=== PATIENT | female | born 1970 | race Caucasian/White ===

== ENCOUNTER 2022-10-23 16:55 | Outpatient (REF) | payer MEDICAID, SELFPAY | END 2022-10-23 16:56 | disposition home or self-care (01) | LOC: HO.HOSX 16:55 | PROVIDERS: Visit Provider Physician Assistant | DX: Z13.89 Encounter for screening for other disorder (principal) ==

== ENCOUNTER 2022-11-14 10:14 | Outpatient (REF) | payer MEDICAID, SELFPAY ==
--- NOTE | ~2022-11-14 | XR_ITS ---
EXAMINATION: XR HIP, LEFT, WITH AP PELVIS XR HIP, RIGHT CLINICAL INFORMATION: Pain. COMPARISON: None available. TECHNIQUE: AP and frog-leg lateral views of the left hip are submitted, together with a frontal view of the pelvis. AP and frog-leg lateral views of the right hip. FINDINGS: There is bony demineralization. The bilateral acetabular joint spaces are well-maintained. There is minimal subchondral sclerosis and peripheral osteophyte formation of the acetabular roofs. The femoral heads are smooth. The sacroiliac joints are symmetric and well-maintained. The pubic symphysis is intact. There is incompletely characterized lumbar levoscoliosis. XR/XR hip RT min 2V IMPRESSION: There is slight osteoarthritic change of the bilateral hips. No fracture or dislocation is seen.
--- NOTE | ~2022-11-14 | XR_ITS ---
EXAMINATION: XR HIP, LEFT, WITH AP PELVIS XR HIP, RIGHT CLINICAL INFORMATION: Pain. COMPARISON: None available. TECHNIQUE: AP and frog-leg lateral views of the left hip are submitted, together with a frontal view of the pelvis. AP and frog-leg lateral views of the right hip. FINDINGS: There is bony demineralization. The bilateral acetabular joint spaces are well-maintained. There is minimal subchondral sclerosis and peripheral osteophyte formation of the acetabular roofs. The femoral heads are smooth. The sacroiliac joints are symmetric and well-maintained. The pubic symphysis is intact. There is incompletely characterized lumbar levoscoliosis. XR/XR hip LT w PEL1V IMPRESSION: There is slight osteoarthritic change of the bilateral hips. No fracture or dislocation is seen.
== END 2022-11-14 10:15 | disposition home or self-care (01) ==
LOC: HO.HOSX 10:14
PROVIDERS: Visit Provider Physician Assistant
DX: M54.16 Radiculopathy, lumbar region (principal)
CPT/HCPCS: 73502; 99202

== ENCOUNTER 2022-11-21 09:32 | Outpatient (REF) | payer MEDICAID, SELFPAY ==
--- NOTE | ~2022-11-21 | XR_ITS ---
EXAMINATION: XR KNEE, RIGHT XR KNEE, LEFT XR KNEE AP STANDING CLINICAL INFORMATION: Pain. COMPARISON: None available. TECHNIQUE: Lateral and axial views of the right knee were obtained. Lateral and axial views of the left knee were obtained. AP bilateral standing view of the knees was obtained. FINDINGS: Right knee: Bony alignment and mineralization are normal. The lateral, medial and patellofemoral joint space compartments are well-maintained. There is mild peripheral osteophyte formation of the lateral joint space compartment. No fracture, dislocation or right knee joint effusion is seen. There is no foreign body. Left knee: Bony alignment and mineralization are normal. There is marked asymmetric narrowing of the medial joint space compartment. The lateral and patellofemoral joint space compartment are well-maintained. There is tricompartment peripheral osteophyte formation. There is a mild varus configuration. No fracture, dislocation or significant joint effusion is seen. There is no foreign body. XR/XR knee LT 2V IMPRESSION: 1. There is mild tricompartment osteoarthritic change of the right knee. 2. There is marked osteoarthritic change of the medial joint space compartment of the left knee comment, and mild osteoarthritic change is seen of the medial joint space compartment. 3. There is a mild varus configuration of the left knee.
--- NOTE | ~2022-11-21 | XR_ITS ---
EXAMINATION: XR KNEE, RIGHT XR KNEE, LEFT XR KNEE AP STANDING CLINICAL INFORMATION: Pain. COMPARISON: None available. TECHNIQUE: Lateral and axial views of the right knee were obtained. Lateral and axial views of the left knee were obtained. AP bilateral standing view of the knees was obtained. FINDINGS: Right knee: Bony alignment and mineralization are normal. The lateral, medial and patellofemoral joint space compartments are well-maintained. There is mild peripheral osteophyte formation of the lateral joint space compartment. No fracture, dislocation or right knee joint effusion is seen. There is no foreign body. Left knee: Bony alignment and mineralization are normal. There is marked asymmetric narrowing of the medial joint space compartment. The lateral and patellofemoral joint space compartment are well-maintained. There is tricompartment peripheral osteophyte formation. There is a mild varus configuration. No fracture, dislocation or significant joint effusion is seen. There is no foreign body. XR/XR knee standing BI IMPRESSION: 1. There is mild tricompartment osteoarthritic change of the right knee. 2. There is marked osteoarthritic change of the medial joint space compartment of the left knee comment, and mild osteoarthritic change is seen of the medial joint space compartment. 3. There is a mild varus configuration of the left knee.
--- NOTE | ~2022-11-21 | XR_ITS ---
EXAMINATION: XR KNEE, RIGHT XR KNEE, LEFT XR KNEE AP STANDING CLINICAL INFORMATION: Pain. COMPARISON: None available. TECHNIQUE: Lateral and axial views of the right knee were obtained. Lateral and axial views of the left knee were obtained. AP bilateral standing view of the knees was obtained. FINDINGS: Right knee: Bony alignment and mineralization are normal. The lateral, medial and patellofemoral joint space compartments are well-maintained. There is mild peripheral osteophyte formation of the lateral joint space compartment. No fracture, dislocation or right knee joint effusion is seen. There is no foreign body. Left knee: Bony alignment and mineralization are normal. There is marked asymmetric narrowing of the medial joint space compartment. The lateral and patellofemoral joint space compartment are well-maintained. There is tricompartment peripheral osteophyte formation. There is a mild varus configuration. No fracture, dislocation or significant joint effusion is seen. There is no foreign body. XR/XR knee RT 2V IMPRESSION: 1. There is mild tricompartment osteoarthritic change of the right knee. 2. There is marked osteoarthritic change of the medial joint space compartment of the left knee comment, and mild osteoarthritic change is seen of the medial joint space compartment. 3. There is a mild varus configuration of the left knee.
== END 2022-11-21 09:33 | disposition home or self-care (01) ==
LOC: HO.HOSX 09:32
PROVIDERS: Visit Provider Physician Assistant
DX: M17.0 Bilateral primary osteoarthritis of knee (principal)
CPT/HCPCS: 73560; 73565; 99212

== ENCOUNTER 2023-02-20 10:50 | Outpatient (AMB) | payer MEDICAID, SELFPAY ==
--- NOTE | 2023-02-20 10:53 | A.OFFVIS_ITS ---
Intake Intake Visit Reasons: OV - left knee euflexxa gel #1 Intake Note: Jenna is a 52 year old female who presents today for her 1st round of left knee euflexxa gel injections. Allergies acetaminophen [From PERCOCET] Allergy (Unknown, Verified 02/20/23 10:59) RASH codeine [CODEINE] Allergy (Unknown, Verified 02/20/23 10:59) RASH morphine [MORPHINE] Allergy (Unknown, Verified 02/20/23 10:59) SWELLING oxycodone [From PERCOCET] Allergy (Unknown, Verified 02/20/23 10:59) RASH penicillamine [Cuprimine] Allergy (Unknown, Verified 02/20/23 10:59) Unknown Penicillins [PENICILLINS] Allergy (Unknown, Verified 02/20/23 10:59) RASH Cortisone Injection Adverse Reaction (Uncoded 11/21/22 13:26) Fatigued HPI OV - left knee euflexxa gel #1 HPI Details 52-year-old female who presents in the office today for a follow up of bilateral knee pain and her 1st Euflexxa injection in a series of 3 in the bilateral knees. [facility] Social History Alcohol intake: current Patient Tobacco Use Status: Former Tobacco user Current occupational status: disabled Review of Systems Const All systems reviewed & are unremarkable except as noted in HPI and below Physical Exam Const General: cooperative and no acute distress Orientation/consciousness: patient oriented x3 Resp Effort & Inspection: normal respiratory effort and able to speak in complete sentences Cardio Peripheral pulses: Peripheral pulses 2+ throughout Neuro General: patient oriented x3 Extrem Other: Bilateral knees: Normal to inspection. No ecchymosis, erythema, or joint effusion. No tenderness to palpation to the medial or lateral joint lines. Full knee extension and flexion. Crepitus felt with ROM. NVI. Psych Mental Status: mental status grossly normal Office Procedures Joint Injection/Drain Joint Injection/Drain Primary Site: left knee Prep: site was prepped using aseptic technique, ethochloride spray was applied and injection warnings given Injected: in the joint (Euflexxa #1) Approach Used: anterolateral Procedure: The patient tolerated the procedure well, but had some pain with the injection and there was some relief with the local anesthesia Coding 03777 - Large joint Procedure code (CPT) selection complete Results Reviewed Results Reviewed: 02/20/23 10:52 Hyaluronate Sodium [Euflexxa] 20 mg INTRAARTIC .[facility] Assessment & Plan Assessment & Plan (1) Osteoarthritis of right knee: Code(s): M17.11 - Unilateral primary osteoarthritis, right knee (2) Osteoarthritis of left knee: Code(s): M17.12 - Unilateral primary osteoarthritis, left knee Plan Ms. Andrade is a 52-year-old female who presents in the office today for a follow up of bilateral knee pain and her 1st Euflexxa injection in a series of 3 in the bilateral knees. The patient was injection with her 1st Euflexxa injection in the bilateral knees. The patient was explained the risk, benefits, and alternatives to receiving this injection. After receiving consent for the injection, the patient had the procedure done while in office today. The patient tolerated the procedure well with no complications. Follow up will be in 1 week for her 2nd Euflexxa injection in the bilateral knees, or sooner if needed. Patient Instructions: Scribed for Joan Hadley PA-C by Debo Kasper medical device engineer, on 02/20/2023 at 10:54 am, EST. Your attestation Coding Level of Care Code Procedure Only Diagnoses Osteoarthritis of right knee M17.11 Osteoarthritis of left knee M17.12 CPT Codes Coding - 79309 Large joint: 58610 - Large joint ([id number])
== END 2023-02-20 11:32 | disposition home or self-care (01) ==
PROVIDERS: Visit Provider Physician Assistant
DX: M17.0 Bilateral primary osteoarthritis of knee (principal)
CPT/HCPCS: 20610

== ENCOUNTER → 2023-02-20 10:50 | Outpatient (BNVA) | payer MEDICAID, SELFPAY | PROVIDERS: Visit Provider Physician Assistant | DX: M17.11 Unilateral primary osteoarthritis, right knee (principal); M17.12 Unilateral primary osteoarthritis, left knee | CPT/HCPCS: 20610; J7323 ==

== ENCOUNTER 2023-03-01 11:41 | Outpatient (AMB) | payer MEDICAID, SELFPAY ==
[2023-03-01 11:50] VITALS: BMI 35.4
--- NOTE | 2023-03-01 11:50 | MHC.OFFVIS ---
Intake Vital Signs 03/01/23 11:50 Height 5 ft 9 in Weight 240 lb BMI 35.4 Intake Visit Reasons: OV-B/L knee Euflexxa injection #2 Intake Note: Jenna is a 52 year old female who presents today for her 2nd round of left knee euflexxa gel injections. Allergies acetaminophen [From PERCOCET] Allergy (Unknown, Verified 03/01/23 11:51) RASH codeine [CODEINE] Allergy (Unknown, Verified 03/01/23 11:51) RASH morphine [MORPHINE] Allergy (Unknown, Verified 03/01/23 11:51) SWELLING oxycodone [From PERCOCET] Allergy (Unknown, Verified 03/01/23 11:51) RASH penicillamine [Cuprimine] Allergy (Unknown, Verified 03/01/23 11:51) Unknown Penicillins [PENICILLINS] Allergy (Unknown, Verified 03/01/23 11:51) RASH Cortisone Injection Adverse Reaction (Uncoded 03/01/23 11:51) Fatigued HPI OV-B/L knee Euflexxa injection #2 HPI Details 53-year-old female who presents in the office today for a follow up of left knee pain and her 2nd Euflexxa injection in a series of 3 in the left knee. [facility] Social History Alcohol intake: current Patient Tobacco Use Status: Former Tobacco user Current occupational status: disabled Review of Systems Const All systems reviewed & are unremarkable except as noted in HPI and below Physical Exam Vital Signs: BMI result Body Mass Index 35.4 Const General: cooperative and no acute distress Orientation/consciousness: patient oriented x3 Resp Effort & Inspection: normal respiratory effort and able to speak in complete sentences Cardio Peripheral pulses: Peripheral pulses 2+ throughout Neuro General: patient oriented x3 Extrem Other: Left knee: Normal to inspection. No ecchymosis, erythema, or joint effusion. No tenderness to palpation to the medial or lateral joint lines. Full knee extension and flexion. Crepitus felt with ROM. NVI. Psych Mental Status: mental status grossly normal Office Procedures Joint Injection/Drain Joint Injection/Drain Primary Site: left knee Prep: site was prepped using aseptic technique, ethochloride spray was applied and injection warnings given Injected: other (Euflexxa #2) Approach Used: anterolateral Procedure: The patient tolerated the procedure well, but had some pain with the injection and there was some relief with the local anesthesia Coding - Large joint Procedure code (CPT) selection complete Results Reviewed Results Reviewed: 03/01/23 11:41 Hyaluronate Sodium [Euflexxa] 20 mg INTRAARTIC .[facility] 03/01/23 12:00 Hyaluronate Sodium [Euflexxa] 20 mg INTRAARTIC .[facility] Assessment & Plan Assessment & Plan (1) Osteoarthritis of left knee: Code(s): M17.12 - Unilateral primary osteoarthritis, left knee Plan Ms. Andrade is a 53-year-old female who presents in the office today for a follow up of left knee pain and her 2nd Euflexxa injection in a series of 3 in the left knee. The patient was injection with her 2nd Euflexxa injection in the left knee. The patient was explained the risk, benefits, and alternatives to receiving this injection. After receiving consent for the injection, the patient had the procedure done while in office today. The patient tolerated the procedure well with no complications. Follow up will be in 1 week for her 3rd Euflexxa injection in the left knee, or sooner if needed. Patient Instructions: Scribed for Joan Hadley PA-C by Debo Kasper medical administrative specialist, on 03/01/2023 at 11:43 am, EST. Your attestation Coding Level of Care Code Procedure Only Diagnoses Osteoarthritis of left knee M17.12 CPT Codes Coding - 06321 Large joint: 18222 - Large joint ([id number])
== END 2023-03-01 12:16 | disposition home or self-care (01) ==
PROVIDERS: Visit Provider Physician Assistant
DX: M17.12 Unilateral primary osteoarthritis, left knee (principal)
CPT/HCPCS: 20610

== ENCOUNTER → 2023-03-01 11:41 | Outpatient (BNVA) | payer MEDICAID, SELFPAY | PROVIDERS: Visit Provider Physician Assistant | DX: M17.12 Unilateral primary osteoarthritis, left knee (principal) | CPT/HCPCS: 20610; J7323 ==

== ENCOUNTER 2023-03-06 12:43 | Outpatient (AMB) | payer MEDICAID, SELFPAY ==
--- NOTE | 2023-03-06 12:50 | MHC.OFFVIS ---
Intake Vital Signs 03/06/23 12:51 Height 5 ft 9 in Weight 240 lb BMI 35.4 Intake Visit Reasons: OV- Left knee Euflexxa injection #3 Intake Note: Jenna is a 52 year old female who presents today for her 3rd round of left knee euflexxa gel injections. Allergies acetaminophen [From PERCOCET] Allergy (Unknown, Verified 03/06/23 12:54) RASH codeine [CODEINE] Allergy (Unknown, Verified 03/06/23 12:54) RASH morphine [MORPHINE] Allergy (Unknown, Verified 03/06/23 12:54) SWELLING oxycodone [From PERCOCET] Allergy (Unknown, Verified 03/06/23 12:54) RASH penicillamine [Cuprimine] Allergy (Unknown, Verified 03/06/23 12:54) Unknown Penicillins [PENICILLINS] Allergy (Unknown, Verified 03/06/23 12:54) RASH Cortisone Injection Adverse Reaction (Uncoded 03/01/23 11:51) Fatigued HPI OV- Left knee Euflexxa injection #3 HPI Details 53-year-old female who presents in the office today for a follow up of left knee pain and her 3rd Euflexxa injection in a series of 3 in the left knee. [facility] Social History Alcohol intake: current Patient Tobacco Use Status: Former Tobacco user Current occupational status: disabled Review of Systems Const All systems reviewed & are unremarkable except as noted in HPI and below Physical Exam Vital Signs: BMI result Body Mass Index 35.4 Const General: cooperative and no acute distress Orientation/consciousness: patient oriented x3 Resp Effort & Inspection: normal respiratory effort and able to speak in complete sentences Cardio Peripheral pulses: Peripheral pulses 2+ throughout Neuro General: patient oriented x3 Extrem Other: Left knee: Normal to inspection. No ecchymosis, erythema, or joint effusion. No tenderness to palpation to the medial or lateral joint lines. Full knee extension and flexion. Crepitus felt with ROM. NVI. Psych Mental Status: mental status grossly normal Office Procedures Joint Injection/Drain Joint Injection/Drain Primary Site: left knee Injected: in the joint (Euflexxa #2) Approach Used: anterolateral Procedure: The patient tolerated the procedure well, but had some pain with the injection and there was some relief with the local anesthesia Coding 91440 - Large joint Procedure code (CPT) selection complete Results Reviewed Results Reviewed: 03/06/23 12:44 Hyaluronate Sodium [Euflexxa] 20 mg INTRAARTIC .[facility] Assessment & Plan Assessment & Plan (1) Osteoarthritis of left knee: Code(s): M17.12 - Unilateral primary osteoarthritis, left knee Plan Ms. Andrade is a 53-year-old female who presents in the office today for a follow up of left knee pain and her 3rd Euflexxa injection in a series of 3 in the left knee. The patient was injection with her 3rd Euflexxa injection in the left knee. The patient was explained the risk, benefits, and alternatives to receiving this injection. After receiving consent for the injection, the patient had the procedure done while in office today. The patient tolerated the procedure well with no complications. Follow up will be PRN, or sooner if needed. Patient Instructions: Scribed for Joan Hadley PA-C by Debo Kasper medical management specialist, on 03/06/2023 at 1:00 pm, EST. Your attestation Coding Level of Care Code Procedure Only Diagnoses Osteoarthritis of left knee M17.12 CPT Codes Coding - 38107 Large joint: 26999 - Large joint ([id number])
[2023-03-06 12:51] VITALS: BMI 35.4
== END 2023-03-06 12:55 | disposition home or self-care (01) ==
PROVIDERS: Visit Provider Physician Assistant
DX: M17.12 Unilateral primary osteoarthritis, left knee (principal)
CPT/HCPCS: 20610

== ENCOUNTER → 2023-03-06 12:43 | Outpatient (BNVA) | payer MEDICAID, SELFPAY | PROVIDERS: Visit Provider Physician Assistant | DX: M17.12 Unilateral primary osteoarthritis, left knee (principal) | CPT/HCPCS: 20610; J7323 ==

== ENCOUNTER 2023-04-03 13:48 | Outpatient (REF) | payer MEDICAID, SELFPAY ==
--- NOTE | ~2023-04-03 | XR_ITS ---
EXAMINATION: XR LUMBOSACRAL SPINE WITH OBLIQUES CLINICAL INFORMATION: Spondylolysis COMPARISON: None available. TECHNIQUE: AP, both oblique, and lateral views of the lumbar spine. Lateral view of the lumbosacral junction. FINDINGS: There is levoscoliosis of lumbar spine and diffuse osteopenia. There is no evidence of spondylolisthesis there is mild spondylolysis of L4 over L5 more pronounced on flexion view and improving on extension view. There is narrowing of L2-L3 and L3-L4 on the right mostly. Pedicles are preserved. Soft tissues are unremarkable. XR/XR lumbar spine 6V w bending IMPRESSION: Levoscoliosis of lumbar spine, spondylolysis of L4 over L5 and narrowing of L2-L3 and L3-L4 on the right.
== END 2023-04-03 13:49 | disposition home or self-care (01) ==
LOC: HO.XRAY 13:48
PROVIDERS: PCP Internal Medicine; Visit Provider Nurse Practitioner Family
DX: M47.816 Spondylosis without myelopathy or radiculopathy, lumbar region (principal); M41.86 Other forms of scoliosis, lumbar region; M79.604 Pain in right leg; M25.551 Pain in right hip
CPT/HCPCS: 72114; 99204

== ENCOUNTER 2023-04-03 13:48 | Outpatient (AMB) | payer MEDICAID, SELFPAY ==
--- NOTE | 2023-04-03 14:25 | MHC.OFFVIS ---
Intake Vital Signs 04/03/23 14:30 Height 5 ft 9 in Weight 233 lb BMI 34.4 BP 115/68 Blood Pressure Location Rt brachial Position Sitting Pulse 57 Pulse Source Pulse Oximeter Pulse Oximetry (%) 95 Oxygen Delivery Method Room Air Intake Visit Reasons: Radiculopathy, Lumbar Region Intake Note: Pain today 3/10 Competitive Intelligence Analyst Required: No Accompanied by: Self / Same As Patient Allergies acetaminophen [From PERCOCET] Allergy (Unknown, Verified 04/03/23 14:34) RASH codeine [CODEINE] Allergy (Unknown, Verified 04/03/23 14:34) RASH morphine [MORPHINE] Allergy (Unknown, Verified 04/03/23 14:34) SWELLING oxycodone [From PERCOCET] Allergy (Unknown, Verified 04/03/23 14:34) RASH penicillamine [Cuprimine] Allergy (Unknown, Verified 04/03/23 14:34) Unknown Penicillins [PENICILLINS] Allergy (Unknown, Verified 04/03/23 14:34) RASH Cortisone Injection Adverse Reaction (Uncoded 03/01/23 11:51) Fatigued HPI Radiculopathy, Lumbar Region HPI Details Patient is a pleasant 53 years old female presents today chronic right hip and lower back pain. Denies any recent or past trauma, injury or falls. Low back pain is axial and also radiates into her right buttock and into her right leg and foot laterally with numbness, tingling in right big toe, 2nd and 3rd toes. Denies previous back or hip surgeries or injections. There is a slight osteoarthritic change of the bilateral hips per most recent imaging. Patient attributes her pain due to arthritis. She also has chronic knee pain and has recently received gel injections through Orthopedic office. Pain increases with walking, any movements, transitioning from sitting to standing, or prolonged sitting. With severe pain, she gets unsteady and imbalance. Patient uses chair in her shower due to unsteadiness. She avoids stairs due to knee, hip and low back pain. Pain is constant is rated at 10/10 most severe with activities and 3-5/10 with rest on average. Reports gabapentin has been minimally effective, willing to trial increased dose. She continues to work on loosing weight and reports 95 lbs weight loss through HEP. Denies any fever, weight loss, abdominal pain, foot drop, weakness, bladder or bowel dysfunction or saddle anesthesia. Location Low back and right hip pain radiates down right leg Duration Chronic low back and right hip pain 5 years Characteristics of symptom or complaint Aching, spasming, shooting, throbbing, sharp, griding, jolting, shooting Aggravating or associated factors Movements, walking, sitting, climbing stairs Relieving factors Rest, Motrin, Tylenol, lidocaine patches, gabapentin -minimal effect Treatment Home exercise program, weight loss PFSH Social History Alcohol intake: current Patient Tobacco Use Status: Former Tobacco user Current occupational status: disabled Review of Systems Const All systems reviewed & are unremarkable except as noted in HPI and below Neuro Denies Sensory deficit (Neuro) Physical Exam Vital Signs: Last Vital Signs Pulse 57 04/03/23 14:30 BP 115/68 04/03/23 14:30 Pulse Ox 95 04/03/23 14:30 Oxygen Delivery Method Room Air 04/03/23 14:30 BMI result Body Mass Index 34.4 General: Appears afebrile. Alert and oriented. Mood and affect appropriate. Follows and participates in conversation appropriately. Respiratory effort is unlabored. No cough. No nasal discharge. Able to transition from sit to stand unassisted. Back/Spine/Pelvis Other: Mildly antalgic gait with limping. Can flex forward to 65-75 degrees and extend to 5-10 degrees before experiencing lumbar pain. Demonstrates 5/5 left and 4/5 right strength of quadriceps bilaterally as well as flexion/dorsiflexion of bilateral feet against resistance. 2+ pedal pulses bilaterally. Seated straight leg rise with dorsiflexion on the right. +1 right and +2 left patellar and +2 achilles reflexes bilaterally. Facet loading test positive bilaterally. Mercedes sign, Reno?s, Gaenslen, Pelvic compression and Stinchfield tests are positive on the right, equivocal on the left. No groin pain with I/E hip rotations. Significant paraspinals and midline tenderness L3-S1. Valsalva maneuver negative. Cervical Spine: cervical ROM normal and No Cervical spine tenderness Thoracic/Lumbar Spine: thoracic and lumbar spine normal to inspection, No Thoracic/lumbar spine scar(s), Lasegue's sign positive on the right and localized, pain with thoraco-lumbar ROM, paraspinal muscle tenderness, thoraco-lumbar ROM limited, Thoracic/lumbar scoliosis, No thoracic spinal tenderness and lumbar spinal tenderness at L3, at L4 and at L5 Pelvis: buttock tenderness on the right and sciatic notch tenderness on the right Sacroiliac joints: bilaterally tender to palpation Neuro Gait exam (Neuro): Antalgic gait present and No Assistive device used Motor exam (neuro): no tremor noted and Motor abnormalities not present Sensory Exam: No Sensory deficit (Neuro) Coordination: Romberg test negative Results Reviewed Results Reviewed: XR LUMBOSACRAL SPINE WITH OBLIQUES 04/03/23 CLINICAL INFORMATION: Spondylolysis COMPARISON: None available. TECHNIQUE: AP, both oblique, and lateral views of the lumbar spine. Lateral view of the lumbosacral junction. FINDINGS: There is levoscoliosis of lumbar spine and diffuse osteopenia. There is no evidence of spondylolisthesis there is mild spondylolysis of L4 over L5 more pronounced on flexion view and improving on extension view. There is narrowing of L2-L3 and L3-L4 on the right mostly. Pedicles are preserved. Soft tissues are unremarkable. IMPRESSION: Levoscoliosis of lumbar spine, spondylolysis of L4 over L5 and narrowing of L2-L3 and L3-L4 on the right. XR HIP, LEFT, WITH AP PELVIS XR HIP, RIGHT 11/14/22 FINDINGS: There is bony demineralization. The bilateral acetabular joint spaces are well-maintained. There is minimal subchondral sclerosis and peripheral osteophyte formation of the acetabular roofs. The femoral heads are smooth. The sacroiliac joints are symmetric and well-maintained. The pubic symphysis is intact. There is incompletely characterized lumbar levoscoliosis. IMPRESSION: There is slight osteoarthritic change of the bilateral hips. No fracture or dislocation is seen. Assessment & Plan Assessment & Plan (1) Lumbar spondylosis: Code(s): M47.816 - Spondylosis without myelopathy or radiculopathy, lumbar region (2) Right hip pain: Code(s): M25.551 - Pain in right hip (3) Low back pain radiating to right lower extremity: Code(s): M54.50 - Low back pain, unspecified; M79.604 - Pain in right leg (4) Levoscoliosis of lumbar spine: Code(s): M41.86 - Other forms of scoliosis, lumbar region Plan 1. Lumbar spine with bending imaging obtained after this visit and is noted above. Will proceed with lumbar spine MRI to assess for neural integrity and compression. Patient is aware to call if pain worsens or if she develops any red flag symptoms to seek emergency care. Patient denies any cauda equina syndrome symptoms at this time. 2. Refill provided for gabapentin with increased dose at 300 mg BID. Side effects and precautions reviewed with patient. 3. Continues HEP and weight loss, as well as good posture, activity modifications, NSAIDs, lidocaine patches, adequate hydration. Briefly reviewed interventional treatments for radicular and axial low back pain with scoliosis, facetogenic, SIJ and discogenic related pain components. Informational booklets provided. All questions and concerns have been answered and patient agreed with the plan. Follow up for MRI results and sooner as needed. Orders: Orders XR lumbar spine 6V w bending 04/03/23 M25.551 - Pain in right hip, M47.816 - Spondylosis without myelopathy or radiculopathy, lumbar region MR lumbar spine wo con 04/03/23 M47.816 - Spondylosis without myelopathy or radiculopathy, lumbar region, M54.50 - Low back pain, unspecified, M79.604 - Pain in right leg Medications: Changed From gabapentin 100 mg PO TID M25.551 - Pain in right hip, M47.816 - Spondylosis without myelopathy or radiculopathy, lumbar region, M54.50 - Low back pain, unspecified, M79.604 - Pain in right leg To gabapentin 300 mg PO BID 30 days 60 caps 1RF pain M25.551 - Pain in right hip, M47.816 - Spondylosis without myelopathy or radiculopathy, lumbar region, M54.50 - Low back pain, unspecified, M79.604 - Pain in right leg Coding Level of Care Code New Pt Level 4 (84060) Diagnoses Lumbar spondylosis M47.816 Right hip pain M25.551 Low back pain radiating to right lower extremity M54.50; M79.604 Levoscoliosis of lumbar spine M41.86
[2023-04-03 14:30] VITALS: BP 115/68; PULSE 57; O2SAT 95; BMI 34.4
== END 2023-04-03 15:00 | disposition home or self-care (01) ==
PROVIDERS: PCP Internal Medicine; Visit Provider Nurse Practitioner Family
DX: M47.816 Spondylosis without myelopathy or radiculopathy, lumbar region (principal); M25.551 Pain in right hip; M54.50 Low back pain, unspecified; M79.604 Pain in right leg; M41.86 Other forms of scoliosis, lumbar region
CPT/HCPCS: 99204

== ENCOUNTER 2023-10-08 11:49 | Outpatient (REF) | payer MEDICAID, SELFPAY ==
[2023-10-08 15:22] LABS: Alanine Aminotransferase 23 U/L (0-31); Albumin Level 4.3 g/dL (3.5-5.0); Alkaline Phosphatase 76 U/L (39-117); Anion Gap 12 (12-20); Aspartate Amino Transferase 31 U/L (5-31); Blood Urea Nitrogen 19 mg/dL (9-16); Calcium 9.7 mg/dL (8.4-10.2); Carbon Dioxide 26 mmol/L (22-29); Chloride 106 mmol/L (96-108); Estimated Glomerular Filt Rate > 60; Glucose Fasting 94 mg/dL (60-99); Potassium 3.8 mmol/L (3.3-5.1); Sodium 140 mmol/L (135-145); Total Protein 7.3 g/dL (6.5-8.0)
[2023-10-08 15:28] LABS: TSH reflex Free T4 26.85 uIU/mL (0.32-4.0)
[2023-10-08 16:08] LABS: Free T4 (Free Thyroxine) 0.82 ng/dL (0.71-1.85)
== END 2023-10-08 11:50 | disposition home or self-care (01) ==
LOC: HO.CHCLDS 11:49
PROVIDERS: Visit Provider Internal Medicine
DX: E03.9 Hypothyroidism, unspecified (principal); M25.561 Pain in right knee; M25.562 Pain in left knee
CPT/HCPCS: 36415; 80053; 84439; 84443

== ENCOUNTER 2024-02-05 10:14 | Outpatient (REF) | payer MEDICAID, SELFPAY ==
[2024-02-05 12:20] LABS: TSH reflex Free T4 0.09 uIU/mL (0.32-4.0)
[2024-02-05 13:28] LABS: Free T4 (Free Thyroxine) 1.55 ng/dL (0.71-1.85)
== END 2024-02-05 10:15 | disposition home or self-care (01) ==
LOC: HO.CHCLDS 10:14
PROVIDERS: Visit Provider Internal Medicine
DX: E03.9 Hypothyroidism, unspecified (principal)
CPT/HCPCS: 36415; 84439; 84443

== ENCOUNTER 2025-06-19 10:57 | Outpatient (REF) | payer MEDICAID, SELFPAY ==
--- OUTSIDE RECORDS SUMMARY | 2025-06-19 13:09 | XMS_ITS | Encounter Summary ---
Author Organization [employer] Address [address] [place] [address] Care Team Providers Care Retort Firer Name Role Phone Anamaria Morrison MD Primary Care Provider [phone] Encounter Details Date Type Department Care Team (Late Contact Info) Description 10/18/2022 Telephone [facility] MED & PEDS [address] [place] [address] Anamaria Morrison MD [address] [place] [address] Social History Tobacco Use Types Packs/Day Years Used Date Smoking Tobacco: Every Day Cigarettes 0.5 43.8 Started: 08/13/1981 Passive Smoke Exposure: Current Smokeless Tobacco: Former Depression Answer Date Recorded Patient Health Questionnaire-9 Score 2 08/15/2022 Depression Answer Date Recorded Patient Health Questionnaire-2 Score 0 08/15/2022 Comments Unknown Sex and Gender Information Value Date Recorded Sex Assigned at Female 06/12/2022 10:21 AM EDT Legal Sex Female 10:21 AM EDT Gender Identity Female 06/12/2022 10:21 AM EDT Sexual Orientation Straight 06/12/2022 10 :21 AM EDT documented as of this encounter Plan of Treatment Upcoming Encounters Date Type Department Care Team (Late Contact Info) Description 07/20/2025 10:00 AM EST Office Visit [facility] MED & PEDS [address] [place] [address] Anamaria Morrison MD [address] [place] [address] documented as of this encounter Visit Diagnoses Diagnosis Dietary counseling Dietary surveillance and counseling Exercise counseling Diabetes due to undrl condition w oth diabetic neuro comp (HCC) documented in this encounter Additional Health Concerns Assessment Noted Time PHQ-9 Depression Total Score: 2 08/15/19 23 10:35 AM EST documented as of this encounter Care Teams Retort Firer Relationship Specialty Start Date End Date Anamaria Morrison MD [address] [place] [address] PCP - General Internal Medicine 08/20/13 documented as of this encounter
--- OUTSIDE RECORDS SUMMARY | 2025-06-19 13:09 | XMS_ITS | Encounter Summary ---
Author Organization [employer] Address [address] [place] [address] [place] [address] Care Team Providers Care Attenuator Name Role Phone Anamaria Morrison MD Primary Care Provider [phone] Reason for Visit * Reason Comments Med Refill Encounter Details Date Type Department Care Team ([facility] Contact Info) Description 09/06/[address] [facility] MED & PEDS [address] [place], [place] [phone] Anamaria Morrsion MD [address] [place] [address] Bilateral sciatica Social History Tobacco Use Types Packs/Day Years Used Date Smoking Tobacco: Every Day Cigarettes 0.5 43.8 Started: 08/13/1981 Passive Smoke Exposure: Current Smokeless Tobacco: Former Depression Answer Date Recorded Patient Health Questionnaire-9 Score 2 08/15/2022 Housing Stability Answer Date Recorded What is your housing situation today? I have kayode foy 06/18/[address] you li ve. Do you have problems with any of the following? None of the above 06/18/2023 Food Insecurity Answer Date Recorded Within the past 12 months, y ou worried that your food would run out before you got money to buy more: Never True 06/18/2023 Within the past 12 months,th e food you bought just didn't last and you didn't have enough money to get more: Never True 01/2023 Transportation Answer Date Recorded In the past 12 months, has l ack of transportation kept you from medical appts, meetings, work or from getting things needed for daily living? No 06/18/2023 Utilities Answer Date Recorded In the past 12 months, has t he electric, gas, oil or water company threatened to shut off services in your home? No 06/18/2023 Depression Answer Date Recorded Patient Health Questionnaire-2 [...] Encounters Date Type Department Care Team (Late st Contact Info) Description 07/20/2025 10:00 AM EST Office Visit [facility] MED & PEDS [address] [place] [address] Anamaria Morrison MD [address] [place] [address] documented as of this encounter Visit Diagnoses Diagnosis Bilateral sciatica Sciatica documented in this encounter Additional Health Concerns Assessment Noted Time PHQ-9 Depression Total Score: 2 08/15/19 23 10:35 AM EST documented as of this encounter Care Teams Attenuator Relationship Specialty Start Date End Date Anamaria Morrison MD [address] [place] [address] PCP - General Internal Medicine 08/20/13 documented as of this encounter
--- OUTSIDE RECORDS SUMMARY | 2025-06-19 13:09 | XMS_ITS | Encounter Summary ---
Author Organization [employer] Address [address] [place] [address] [place] [address] Care Team Providers Care Cyber Forensics Analyst Name Role Phone Anamaria Morrison MD Primary Care Provider [phone] Reason for Visit * Reason Onset Date Comments Referral 12/31/2023 Encounter Details Date Type Department Care Team ([facility] st Contact Info) Description 12/31/2023 Telephone [facility] MEDICINE [address] [place] [address] Anamaria Morrison MD [address] [place] [phone] Referral Social History Tobacco Use Types Packs/Day Years Used Date Smoking Tobacco: Every Day Cigarettes 0.5 43.8 Started: 08/13/1981 Passive Smoke Exposure: Current Smokeless Tobacco: Former Depression Answer Date Recorded Patient Health Questionnaire-9 Score 2 08/15/2022 Housing Stability Answer Date Recorded What is your housing situation today? I have kayode law 10/30/[address] you li ve. Do you have problems with any of the following? None of the above 10/30/2023 Food Insecurity Answer Date Recorded Within the past 12 months, y ou worried that your food would run out before you got money to buy more: Never True 10/30/2023 Within the past 12 months,th e food you bought just didn't last and you didn't have enough money to get more: Never True Transportation Answer Date Recorded In the past 12 months, has l ack of transportation kept you from medical appts, meetings, work or from getting things needed for daily living? Yes, it has kept me from medical appointments or getting medications. 10/30/2023 Utilities Answer Date Recorded In the past 12 months, has t he electric, gas, oil or water company threatened to shut off services in your home? No 10/30/2023 Depression Answer Date Recorded Patient Health Questionnaire-2 Score 0 08/15/2022 Comments Unknown Sex and Gender Information Value Date Recorded Sex Assigned at Female 06/12/2022 10:21 AM EDT Legal Sex Female 10:21 AM EDT Gender Identity Female 06/12/2022 10:21 AM EDT Sexual Orientation Straight 06/12/2022 10 :21 AM EDT documented as of this encounter Miscellaneous Notes * Telephone Encounter - Padmaja Huerta RN - 01/03/2024 12:50 PM EDT TC X1 to pt regarding request below. Pt has not been seen recently for issues below and would need to be seen prior to referrals placed. Pt has upcoming appt in January and can discuss need then and if indicated PCP can place referrals. If pt is in need of and urgent referral, pt would need to be evaluated. LVM for pt to return call to office. * Telephone Encounter - Redd Spence - 12/31/2023 3:03 PM EDT Tc from pt requesting referral for vascular surgeons, stated pcp has referred her to vascular surgeons before in [facility] has forgotten location of facility. Pt is also requesting referral for Neurologistdue to concerns regarding her memory, pt doesn't have a location would like anywhere local. If any questions please contact pt at [phone]. documented in this encounter Plan of Treatment Upcoming Encounters Date Type Department Care Team (Late st Contact Info) Description 07/20/2025 10:00 AM EST Office Visit [facility] MED & PEDS [address] [place] [address] Anamaria Morrison MD [address] [place] [address] documented as of this encounter Visit Diagnoses Not on filedocumented in this encounter Additional Health Concerns Assessment Noted Time PHQ-9 Depression Total Score: 2 08/15/19 23 10:35 AM EST documented as of this encounter Care Teams Cyber Forensics Analyst Relationship Specialty Start Date End Date Anamaria Morrison MD [address] [place] [id number] PCP - General Internal Medicine 08/20/13 documented as of this encounter
--- OUTSIDE RECORDS SUMMARY | 2025-06-19 13:09 | XMS_ITS | Encounter Summary ---
Author Organization [employer] Address [address] [place] [address] 7 [place] [address] Care Team Providers Care Auditor Medical Claims Name Role Phone Anaamria Morrison MD Primary Care Provider [phone] Reason for Visit * Reason Comments Med Refill Encounter Details Date Type Department Care Team ([facility] st Contact Info) Description 09/10/[address] [facility] MEDICINE [address] [place] [address] Aure Haji MD [address] [place], [place] [phone] SOB (shortness of breath) Social History Tobacco Use Types Packs/Day Years Used Date Smoking Tobacco: Every Day Cigarettes 0.5 43.8 Started: 08/13/1981 Passive Smoke Exposure: Current Smokeless Tobacco: Former Depression Answer Date Recorded Patient Health Questionnaire-9 Score 2 08/15/2022 Housing Stability Answer Date Recorded What is your housing situation today? I have kayode foy 10/30/[address] you li [...] Description 07/20/2025 10:00 AM EST Office Visit [facility] MED & PEDS [address] [place] [address] Anamaria Morrison MD [address] [place] [address] documented as of this encounter Visit Diagnoses Diagnosis SOB (shortness of breath) Shortness of breath documented in this encounter Additional Health Concerns Assessment Noted Time PHQ-9 Depression Total Score: 2 08/15/19 23 10:35 AM EST documented as of this encounter Care Teams Auditor Medical Claims Relationship Specialty Start Date End Date Anamaria Morrison MD [address] [place] [address] PCP - General Internal Medicine 08/20/13 documented as of this encounter
--- OUTSIDE RECORDS SUMMARY | 2025-06-19 13:09 | XMS_ITS | Encounter Summary ---
Author Organization [employer] Address [address] [place] [address] 7 [place] [address] Care Team Providers Care Swedger Name Role Phone Anamaria Morrison MD Primary Care Provider [phone] Encounter Details Date Type Department Care Team ([facility] st Contact Info) Description 10/09/2023 Orders Only [facility] MED & PEDS [address] [place], [place] [phone] Anamaria Morrison MD [address] [place] [address] Acquired hypothyroidism (Primary Dx); Arthralgia of both knees; Bilateral sciatica Social History Tobacco Use Types [...] Description 07/20/2025 10:00 AM EST Office Visit [facility] MED & PEDS [address] [place], [place] [phone] Anamaria Morrison MD [address] [place] [address] documented as of this encounter Procedures Procedure Name Priority Date/Time Associated Diagnosis Comments TSH W/REFLEX TO FT4 Routine 02/05/2024 10:18 AM EDT Acquired hypothyroidism documented in this encounter Results * (ABNORMAL) TSH W/Reflex to FT4 (02/05/2024 10:18 AM EDT) TSH reflex Free T4 0.09(L) 0.32 - 4.0 uIU/mL [facility] Blood Venous blood specimen / Unknown 02/05/2024 10:18 AM EDT 02/05/2024 11:20 AM EDT us Anamaria Morrison MD LAB BLOOD ORDERABLES Final Result [facility] [address] [place] [address] [phone] documented in this encounter Visit Diagnoses Diagnosis Acquired hypothyroidism- Primary Unspecified hypothyroidism Arthralgia of both knees Bilateral sciatica Sciatica documented in this encounter Additional Health Concerns Assessment Noted Time PHQ-9 Depression Total Score: 2 08/15/19 23 10:35 AM EST documented as of this encounter Care Teams Swedger Relationship Specialty Start Date End Date Anamaria Morrison MD [address] [place] [address] PCP - General Internal Medicine 08/20/13 documented as of this encounter
--- OUTSIDE RECORDS SUMMARY | 2025-06-19 13:09 | XMS_ITS | Encounter Summary ---
Author Organization [employer] Address [address] [place] [address] [place] [address] Care Team Providers Care Brush Material Preparer Name Role Phone Anamaria Morrison MD Primary Care Provider [phone] Reason for Visit * Reason Comments Med Refill Encounter Details Date Type Department Care Team ([facility] Contact Info) Description 06/18/2023 Refill [facility] MED & PEDS [address] [place], [place] [phone] Anamaria Morrison MD [address] [place] [address] Pain in joint Social History Tobacco Use Types Packs/Day Years [...] Description 07/20/2025 10:00 AM EST Office Visit [facility] MED & PEDS [address] [place] [address] Anamaria Morrison MD [address] [place] [address] documented as of this encounter Visit Diagnoses Diagnosis Pain in joint documented in this encounter Additional Health Concerns Assessment Noted Time PHQ-9 Depression Total Score: 2 08/15/19 23 10:35 AM EST documented as of this encounter Care Teams Brush Material Preparer Relationship Specialty Start Date End Date Anamaria Morrison MD [address] [place] [address] PCP - General Internal Medicine 08/20/13 documented as of this encounter
--- OUTSIDE RECORDS SUMMARY | 2025-06-19 13:09 | XMS_ITS | Clinical Summary ---
Author Organization [employer] Address [address] [place] [address] 7 [place] [address] Care Team Providers Care Grounds Cleaner Name Role Phone Anamaria Morrison MD Primary Care Provider [phone] Allergies Active Allergy Reactions Criticality Noted Date Comments Acetaminophen 01/09/2013 Aspirin Hives 11/21/2016 Barbiturates 02/19/2024 Codeine Hives 11/21/2016 Morphine Anaphylaxis High 11/21/2016 Oxycodone Hives 01/09/2013 Penicillins Rash Low 06/15/2016 Medications naltrexone (Depade) 50 MG tablet take 1 tablet by oral route every day at 8am 03/22/20 20 Active sucralfate (Carafate) 1 g tabletIndications :Gastroesophageal reflux disease without esophagitis take 1 tablet by oral route 4 times every day on an empty stomach 1 hour before meals and at bedtime 120 tablet 11 08/16/19 23 Active Misc. Devices (Cane) misc Active Misc. Devices (Walker) misc Active gabapentin (Neurontin) 100 MG capsuleIndication s:Bilateral sciatica TAKE 1 CAPSULE BY MOUTH THREE TIMES A DAY 90 capsule 11 09/30/19 25 Active cetirizine (ZyrTEC) 10 MG tabletIndications :Seasonal allergies TAKE 1 TABLET BY MOUTH EVERY DAY IN THE MORNING 30 tablet 11 11/01/19 25 Active hydrOXYzine HCl (Atarax) 50 MG tabletIndications :Other mixed anxiety disorders TAKE 1 TO 2 TABLETS BY MOUTH AT BEDTIME NEEDED FOR ANXIETY/INSOM JARED 60 tablet 5 12/16/19 25 Active Multiple Vitamin (Daily-Greg Multivitamin) tabletIndications :Vitamin deficiency TAKE 1 TABLET BY MOUTH EVERY DAY 90 tablet 1 12/24/19 25 Active levothyroxine (Tirosint) 25 MCG capsuleIndication s:Acquired hypothyroidism Take 1 capsule (25 mcg) by mouth before breakfast. Total dose of 225 mcg daily. 90 capsule 01/27/20 25 Active lidocaine (Lidoderm) 5 % patchIndications: Pain in joint APPLY 1 PATCH TOPICALLY EVERYDAY FOR UP TO 12 HOURS 30 patch 5 01/27/20 25 Active levothyroxine (Synthroid) 25 MCG tablet Take 1 tablet (25 mcg) by mouth before breakfast. 30 tablet 01/31/20 25 2025 Active sennosides (Senna-Time) 8.6 MG tabletIndications :Chronic idiopathic constipation Take 2 tablets (17.2 mg) by mouth at bedtime. TAKE 2 TABLETS BY MOUTH AT BEDTIME NEEDED 180 tablet 02/07/20 25 Active albuterol (Ventolin HFA) 108 (90 Base) MCG/ACT inhaler INHALE 1 PUFF EVERY 4 HOURS NEEDED FOR WHEEZING 18 g 3 02/07/20 25 Active levothyroxine (Synthroid, Levoxyl) 200 MCG tablet Take 1 tablet (200 mcg) by mouth in the morning. 90 tablet 02/07/20 25 Active oxybutynin XL (Ditropan-XL) 5 MG 24 hr tabletIndications :Urinary frequency TAKE 1 TABLET BY MOUTH EVERY DAY 90 tablet 03/09/20 25 Active levothyroxine (Synthroid) 50 MCG tabletIndications :Acquired hypothyroidism Take 1 tablet (50 mcg) by mouth before breakfast. Total dose of 250 mcg daily 30 tablet 03/26/20 25 2025 Active Chlorhexidine Gluconate (Hibiclens) 4 % solutionIndicatio ns:Folliculitis Rinse area with water, then cover affected skin, wash gently. Rinse again thoroughly. 236 mL 1 03/26/20 25 Active albuterol (ProAir HFA) 108 (90 Base) MCG/ACT inhalerIndication s:SOB (shortness of breath) Inhale 1 puff every 4 (four) hours if needed for wheezing. 18 g 5 03/26/20 25 Active tiotropium (Spiriva HandiHaler) 18 MCG inhalation capsuleIndication s:SOB (shortness of breath) on exertion Place 1 capsule (18 mcg) into inhaler and inhale in the morning. 30 capsule 11 03/26/20 25 Active Banophen 25 MG capsuleIndication s:SOB (shortness of breath) on exertion Take 1 capsule (25 mg) by mouth every 6 (six) hours if needed for itching. 30 capsule 03/26/20 25 Active budesonide-formot gisela (Symbicort) 160-4.5 MCG/ACT inhalerIndication s:SOB (shortness of breath) on exertion,Smoker Inhale 2 puffs in the morning and at bedtime. Rinse mouth with water after use to reduce aftertaste and incidence of candidiasis. Do not swallow. 10.2 each 03/26/20 25 Active omeprazole (PriLOSEC) [address] capsule TAKE 1 CAPSULE (20 MG) BY MOUTH 2 TIMES DAILY. DO NOT CRUSH OR CHEW. 180 capsule 05/05/20 25 Active melatonin 5 MG tabletIndications :Primary insomnia TAKE 1 TABLET BY MOUTH AT BEDTIME 90 tablet 1 05/06/20 25 Active cholecalciferol VITAMIN D (Vitamin D-3) 50 MCG (2000 UT) capsule TAKE 1 CAPSULE BY MOUTH EVERY DAY 90 capsule 05/08/20 25 Active traZODone (Desyrel) 100 MG tablet TAKE 1 TABLET BY MOUTH EVERYDAY AT BEDTIME 30 tablet 5 06/01/20 25 Active fluticasone (Flonase) 50 MCG/ACT nasal sprayIndications: Seasonal allergies ADMINISTER 1-2 SPRAYS INTO BOTH NOSTRILS IN THE MORNING NEEDED 16 mL 11 06/01/20 25 Active fluticasone (Flonase) 50 MCG/ACT nasal sprayIndications: Seasonal allergies Administer 2 sprays into each nostril in the morning. spray 1 - 2 spray by intranasal route every day in each nostril as needed 16 g 11 11/06/19 24 2024 Discontinued traZODone (Desyrel) 100 MG tablet TAKE 1 TABLET BY MOUTH EVERYDAY AT BEDTIME 30 tablet 5 11/22/19 25 2024 Discontinued Active Problems Problem Noted Date Diagnosed Date Gastroesophageal reflux disease 05/16/2012 Hearing loss 05/16/2012 Heart murmur 05/16/2012 Hypothyroidism 05/16/2012 Joint pain 05/16/2012 Smoker 05/16/2012 Varicose veins 05/16/2012 Vitamin D deficiency 05/16/2012 Encounters Date Type Department Care Team Description 06/10/2025 Patient Outreach [facility] [address] [place] [address] [phone] Anamaria Morrison MD Care Coordination ([facility] Pool #[id number] ) 06/08/2025 Telephone [facility] [address] [place] [address] [phone] Anamaria Morrison MD 06/04/2025 Telephone [facility] [address] [place] [address] [phone] Anamaria Morrison MD 05/30/2025 Refill [facility] [address] [place] [address] Anamaria Morrison MD Seasonal allergies 05/26/2025 Telephone [facility] [address] [place] [address] [phone] Anamaria Morrison MD 05/20/2025 Telephone [facility] [address] [place] [address] 84638 Anamaria Morrison MD 05/08/2025 Patient Outreach [facility] [address] [place] [address] [phone] Anamaria Morrison MD Care Coordination ([facility] Diaz #5 outreach_lvm) 05/08/2025 Refill [facility] [address] [place] [address] Anamaria Morrison MD 05/06/2025 Refill [facility] [address] [place] [address] Anamaria Morrison MD Primary insomnia 05/05/2025 Telephone [facility] [address] [place] [address] 14565 Anamaria Morrison MD 05/05/2025 Refill [facility] [address] [place] [address] Anamaria Morrison MD 04/29/2025 Telephone [facility] [address] [place] [address] 47994 Anamaria Morrison MD 04/07/2025 Patient Outreach [facility] [address] [place] [address] Anamaria Morrison MD 04/06/2025 Patient Outreach [facility] [address] [place] [address] Anamaria Morrison MD Care Coordination ([facility] Eliceo Swenson, TC #5 initial outreach attempt_lvm ) 03/26/2025 10:45 AM EDT Office Visit [facility] [address] [place] [address] Anamaria Morrison MD Smoker (Primary Dx); Chronic obstructive pulmonary disease with acute exacerbation (CMS/HCC); Acquired hypothyroidism; Folliculitis; Dietary counseling; Exercise counseling; SOB (shortness of breath); SOB (shortness of breath) on exertion; Smoker; Cysts of both ovaries; Encounter for screening mammogram for malignant neoplasm of breast; Colon cancer screening; Encounter for immunization 03/26/2025 Travel 03/24/2025 Refill [facility] [address] [place] [address] Anamaria Morrison MD SOB (shortness of breath) on exertion; Smoker 03/23/2025 Orders Only [facility] [address] [place] [address] ProviderEmre MD from Last 3 Months Immunizations Immunization Administration Dates Next Due Hep B, adult 03/26/2025 Influenza injectable quadriv alent IIV4 with preservative 05/10/2016 Influenza injectable quadrivalent preservative f ree 05/17/2021 Pneumococcal Conjugate PCV 20 02/07/2024 Tdap 02/07/2024 Social History Tobacco Use Types Packs/Day Years Used Date Smoking Tobacco: Every Day Cigarettes 0.3 43.8 Started: 08/13/1981 Passive Smoke Exposure: Current Smokeless Tobacco: Former Tobacco Cessation:Ready to Q uit: Not Asked; Counseling Given: Not Answered Alcohol Answer Date Recorded How often do you have a drink containing alcohol ? 1 03/26/2025 How many drinks containing a lcohol do you have on a typical day when you are drinking? 1 03/26/2025 How often do you have six or more drinks on one occasion? 0 03/26/2025 Depression Answer Date Recorded Patient Health Questionnaire-9 Score 12 03/26/2025 Patient Health Questionnaire-9 Score 12 03/26/2025 Last PHQ-9: Questionnaire Data Not on file 0 03/26/2025 Housing Stability Answer Date Recorded What is your housing situation today? I have kayode foy 11/13/[address] you li ve. Do you have problems with any of the following? None of the above 11/13/2024 Food Insecurity Answer Date Recorded Within the past 12 months, y ou worried that your food would run out before you got money to buy more: Never True 11/13/2024 Within the past 12 months,th e food you bought just didn't last and you didn't have enough money to get more: Never True 10/2024 Transportation Answer Date Recorded In the past 12 months, has l ack of transportation kept you from medical appts, meetings, work or from getting things needed for daily living? No 11/13/2024 Utilities Answer Date Recorded In the past 12 months, has t he electric, gas, oil or water company threatened to shut off services in your home? No 11/13/2024 Depression Answer Date Recorded Patient Health Questionnaire-2 Score 1 03/26/2025 Internet Access Answer Date Recorded Internet Access Q1 Yes 11/13/2024 Internet Access Q2 Not on file 11/13/2024 Comments Unknown Sex and Gender Information Value Date Recorded Sex Assigned at Female 06/12/2022 10:21 AM EDT Legal Sex Female 10:21 AM EDT Gender Identity Female 06/12/2022 10:21 AM EDT Sexual Orientation Straight 06/12/2022 10 :21 AM EDT Last Filed Vital Signs Vital Sign Reading Time Taken Comments Blood Pressure 122/70 03/26/2025 10:46 AM EDT Pulse 68 03/26/2025 10:46 AM EDT Temperature 36.6 C (97.9 F) 03/26/2025 10:46 AM EDT Respiratory Rate 20 03/26/2025 10:46 AM EDT Oxygen Saturation 97% 03/26/2025 10:46 AM EDT Inhaled Oxygen Concentration - - Weight 90.7 kg (200 lb) 03/26/2025 10:46 AM EDT Height 176.5 cm (5' 9.5 ) 03/26/2025 10:46 AM ED T Body Mass Index 29.11 03/26/2025 10:46 AM EDT Plan of Treatment Upcoming Encounters Date Type Department Care Team (Late st Contact Info) Description 07/20/2025 10:00 AM EST Office Visit [facility] [address] [place] [address] Anamaria Morrison MD [address] [place] [address] Health Maintenance Due Date Last Done Comments CT Colonography 1968 Colonoscopy 1968 Colorectal Cancer Screening 1968 Dental Oral Exam 1968 Dental Prophylaxis 1968 Dental X-Ray: Bitewings 1968 FIT DNA/Cologuard 1968 FIT 1968 FOBT 1968 HIV Screening 1968 Sigmoidoscopy 1968 Disability Screening 1968 Hepatitis C Screening 02/26/1986 Pap Smear 02/26/1989 Cervical Cancer Screening 02/26/1998 HPV/Cotest 02/26/1998 Zoster Vaccines (1 of 2) 02/26/2018 COVID-19 Vaccine (2 - 2024-2 6 season) 2025 07/20/2022 Influenza Vaccine (#1) 2025 , 05/10/2016 Hepatitis B Vaccines (2 of 3 - 19+ 3-dose series) 04/23/2025 03/26/2025 Depression Monitoring 09/26/2025 03/26/2025 , 03/26/2025 Alcohol/Substance Use Screening 03/26/2026 03/26/2025 SDOH Screening 03/26/2026 03/26/2025 Tobacco Screening 03/26/2026 03/26/2025 Dental X-Ray: Full Mouth 02/19/2027 02/19/2024 Mammogram 05/15/2027 05/15/2025, 05/15/2025, 05/15/2025 Lipid Panel 09/04/2027 09/04/2022, 04/21/2022 DTaP/Tdap/Td Vaccines (2 - T d or Tdap) 02/06/2034 02/07/2024 RSV Patients and Patients Aged 60 years or older (1 - 1-dose 75+ series) 02/26/2043 Pneumococcal Vaccine: 50+ Years Completed 02/07/2024 HIB Vaccines Aged Out No longer eligi ble based on patient's age to complete this topic HPV Vaccines Aged Out No longer eligi ble based on patient's age to complete this topic Hepatitis A Vaccines Aged Out No long er eligible based on patient's age to complete this topic IPV Vaccines Aged Out No longer eligi ble based on patient's age to complete this topic Meningococcal B Vaccine Aged Out No l onger eligible based on patient's age to complete this topic Meningococcal Vaccine Aged Out No piter jose eligible based on patient's age to complete this topic RSV under 20 months Aged Out No longe r eligible based on patient's age to complete this topic Rotavirus Vaccines Aged Out No longer eligible based on patient's age to complete this topic Procedures Procedure Name Priority Date/Time Associated Diagnosis Comments BI MAMMOGRAM SCREENING TOMOSYNTHESIS BILATERAL Routine 05/15/2025 Encounter for screening mammogram for malignant neoplasm of breast CT CHEST ANGIO W AND WO IV CONTRAST Routine 03/23/2025 9:28 AM EDT ECG 12-LEAD Routine 03/22/2025 9:46 AM EDT XR CHEST 1 VIEW Routine 03/22/2025 9:05 AM EDT PANORAMIC RADIOGRAPHIC IMAGE Routine 02/19/2024 2:30 PM EDT LIPID PANEL, STANDARD Routine 09/04/2022 10:05 AM EST Annual physical exam from Last 3 Months or Most Recently Relevant to Health Maintenance Results * BI Mammogram Screening Tomosynthesis Bilateral (05/15/2025) Anatomical Region Laterality Modality Breast Bilateral Mammography Anamaria EAST BI PROCEDURES Final Res ult * CT CHEST ANGIO W AND WO IV CONTRAST (03/23/2025 9:28 AM EDT) Anatomical Region Laterality Modality Computed Tomogra phy Historical Provider MD IMG CT PROCEDURES Final R esult * ECG 12 lead (03/22/2025 9:46 AM EDT) Historical Provider ECG ORDERABLES Final Res ult * XR Chest 1 View (03/22/2025 9:05 AM EDT) Anatomical Region Laterality Modality Chest Radiographic Ruchi ging Historical Provider IMWilliam XR PROCEDURES Final R esult * (ABNORMAL) Lipid Panel, Standard (09/04/2022 10:05 AM EST) Cholesterol, Total 203(H) <200 mg/dL [facility] [employer] HDL Cholesterol 47(L) > OR = 50 mg/dL [facility] [employer] Triglycerides 80 <150 mg/dL [facility] [employer] LDL Cholesterol 139(H) mg/dL (calc) [facility] [employer] Comment: Reference range: <100 Desirable range <100 mg/dL for primary prevention; <70 mg/dL for patients with CHD or diabetic patients with > or = 2 CHD risk factors. LDL-C is now calculated using the Robson-Zakiya calculation, which is a validated novel method providing better accuracy than the Friedewald equation in the estimation of LDL-C. Robson SS et al. JOE. 2013;310(19): 9616-6023 (http://education.Snappy shuttle.Naiku/faq/IUQ124) Chol/HDLC Ratio 4.3 <5.0 (calc) [facility] Non-HDL Cholesterol 156(H) <130 mg/dL (calc) [facility] [employer] Comment: For patients with diabetes plus 1 major ASCVD risk factor, treating to a non-HDL-C goal of <100 mg/dL (LDL-C of <70 mg/dL) is considered a therapeutic option. Blood Venous blood specimen / Unknown 09/04/2022 10:05 AM EST 09/04/2022 10:05 AM EST Narrative [facility] - 09/05/2022 1:39 PM EST FASTING:YES FASTING: YES Anamaria Morrison MD LAB BLOOD ORDERABLES Final Result [facility] [address] [facility] [place] [address] [facility] [address] [facility], ([address]) [place] [address] from Last 3 Months or Most Recently Relevant to Health Maintenance Insurance [facility] C3 DENTAL-[facility] MEDICAID STAND ADULT Care Teams Grounds Cleaner Relationship Specialty Start Date End Date Anamaria Morrison MD [address] [place] [id number] PCP - General Internal Medicine 08/20/13
--- OUTSIDE RECORDS SUMMARY | 2025-06-19 13:10 | XMS_ITS | Encounter Summary ---
Author Organization [employer] Address [address] [place] [address] 7 [place] [address] Care Team Providers Care Dump Truck Driver Off Highway Name Role Phone Anamaria Morrison MD Primary Care Provider [phone] Encounter Details Date Type Department Care Team ([facility] st Contact Info) Description 12/15/2024 Orders Only [facility] & PEDS [address] [place], [place] [phone] ProviderEmre MD Social History Tobacco Use Types Packs/Day Years [...] Recorded Patient Health Questionnaire-2 Score 0 08/15/2022 Internet Access Answer Date Recorded Internet Access [...] Description 07/20/2025 10:00 AM EST Office Visit [facility] [address] [place] [address] Anamaria Morrison MD [address] [place] [address] documented as of this encounter Procedures Procedure Name Priority Date/Time Associated Diagnosis Comments ECG 12-LEAD Routine 12/12/2024 8:48 AM EDT documented in this encounter Results * ECG 12 lead (12/12/2024 8:48 AM EDT) us Historical Provider ECG ORDERABLES Final Res ult documented in this encounter Visit Diagnoses Not on filedocumented in this encounter Additional Health Concerns Assessment Noted Time PHQ-9 Depression Total Score: 2 08/15/19 23 10:35 AM EST documented as of this encounter Care Teams Dump Truck Driver Off Highway Relationship Specialty Start Date End Date Anamaria Morrison MD [address] [place] [address] PCP - General Internal Medicine 08/20/13 documented as of this encounter
--- OUTSIDE RECORDS SUMMARY | 2025-06-19 13:10 | XMS_ITS | Encounter Summary ---
Author Organization [employer] Address [address] [place] [address] 7 [place] [address] Care Team Providers Care Vehicle Dynamics Engineer Name Role Phone Anamaria Morrison MD Primary Care Provider [phone] Encounter Details Date Type Department Care Team (Late st Contact Info) Description 02/03/2025 Orders Only [facility] [address] [place] [address] ProviderEmre MD Social History Tobacco Use Types [...] Upcoming Encounters Date Type Department Care Team ([facility] st Contact Info) Description 07/20/2025 10:00 AM EST Office Visit [facility] [address] [place] [address] Anamaria Morrison MD [address] [place] [address] documented as of this encounter Procedures Procedure Name Priority Date/Time Associated Diagnosis Comments XR CHEST 2 VIEWS Routine 02/03/2025 12:40 PM EDT documented in this encounter Results * XR Chest 2 Views (02/03/2025 12:40 PM EDT) Anatomical Region Laterality Modality Chest Radiographic Ruchi ging Historical Provider MD EAST XR PROCEDURES Final R esult documented in this encounter Visit Diagnoses Not on filedocumented in this encounter Additional Health Concerns Assessment Noted Time PHQ-9 Depression Total Score: 2 08/15/19 23 10:35 AM EST documented as of this encounter Care Teams Vehicle Dynamics Engineer Relationship Specialty Start Date End Date Anamaria Morrison MD [address] [place] [address] PCP - General Internal Medicine 08/20/13 documented as of this encounter
--- OUTSIDE RECORDS SUMMARY | 2025-06-19 13:10 | XMS_ITS | Encounter Summary ---
Author Organization [employer] Address [address] [place] [address] Care Team Providers Care Card Player Name Role Phone Anamaria Morrison MD Primary Care Provider [phone] Reason for Visit * Reason Comments Med Refill Encounter Details Date Type Department Care Team (Late Contact Info) Description 10/12/2022 Refill [facility] [address] [place], [place] [phone] Aure Haji MD [address] [place] [address] Other mixed anxiety disorders (Primary Dx); Pain in joint; SOB (shortness of breath); Dietary counseling; Exercise counseling; Diabetes due to undrl condition w oth diabetic neuro comp ([facility]) Social History Tobacco Use Types Packs/Day Years [...] Description 07/20/2025 10:00 AM EST Office Visit [facility] [address] [place] [address] Anamaria Morrison MD [address] [place] [address] documented as of this encounter Visit Diagnoses Diagnosis Other mixed anxiety disorders- Primary Pain in joint SOB (shortness of breath) Shortness of breath Dietary counseling Dietary surveillance and counseling Exercise counseling Diabetes due to undrl condition w oth diabetic neuro comp (HCC) documented in this encounter Additional Health Concerns Assessment Noted Time PHQ-9 Depression Total Score: 2 08/15/19 23 10:35 AM EST documented as of this encounter Care Teams Card Player Relationship Specialty Start Date End Date Anamaria Morrison MD [address] [place] [address] PCP - General Internal Medicine 08/20/13 documented as of this encounter
--- OUTSIDE RECORDS SUMMARY | 2025-06-19 13:10 | XMS_ITS | Encounter Summary ---
Author Organization [employer] Address [address] [place] [address] [address] [place] [address] Care Team Providers Care Customer Field Representative Name Role Phone Anamaria Morrison MD Primary Care Provider [phone] Encounter Details Date Type Department Care Team (Late st Contact Info) Description 08/07/2024 Telephone [facility] [address] [place] [address] Anamaria Morrison MD [address] [place], [place] [phone] Social History Tobacco Use Types Packs/Day Years Used Date Smoking Tobacco: Every Day Cigarettes 0.5 43.8 Started: 08/13/1981 Passive Smoke Exposure: Current Smokeless Tobacco: Former Depression Answer Date Recorded Patient Health Questionnaire-9 Score 2 08/15/2022 Housing Stability Answer Date Recorded What is your housing situation today? I have kayode sing 10/30/[address] you li [...] encounter Miscellaneous Notes * Telephone Encounter - Mariela Bennett - 08/07/2024 10:17 AM EST Tc from pt requesting a callback as she has several concerns to discuss at she indicates voice has change, I notify pt WIC hours as she denied also triage callback she will like [place] or PCP to call her. [phone] documented in this encounter Plan of Treatment Upcoming Encounters Date Type Department Care Team (Late st Contact Info) Description 07/20/2025 10:00 AM EST Office Visit [facility] MED & PEDS [address] [place] [address] Anamaria Morrison MD [address] [place] [address] documented as of this encounter Visit Diagnoses Not on filedocumented in this encounter Additional Health Concerns Assessment Noted Time PHQ-9 Depression Total Score: 2 08/15/19 23 10:35 AM EST documented as of this encounter Care Teams Customer Field Representative Relationship Specialty Start Date End Date Anamaria Morrison MD [address] [place] [address] PCP - General Internal Medicine 08/20/13 documented as of this encounter
--- OUTSIDE RECORDS SUMMARY | 2025-06-19 13:10 | XMS_ITS | Encounter Summary ---
Author Organization [employer] Address [address] [place] [address] 7 [place] [address] Care Team Providers Care Waste Disposal Plant Operator Name Role Phone Anamaria Morrison MD Primary Care Provider [phone] Encounter Details Date Type Department Care Team ([facility] st Contact Info) Description 03/23/2025 Orders Only [facility] MED & PEDS [address] [place], [place] [phone] ProviderEmre MD Social History Tobacco Use Types Packs/Day Years Used Date Smoking Tobacco: Every Day Cigarettes 0.5 43.8 Started: 08/13/1981 Passive Smoke Exposure: Current Smokeless Tobacco: Former Alcohol Answer Date Recorded How often do [...] AM EDT documented as of this encounter Functional Status * Over the past 2 weeks, how often have you been bothered by any of the following problems? Question Answer Date of Assessment Author Patient Health Questionnaire-2 Score 1 03/13 11:55 AM EDT Kate Aggarwal MA * Little interest or pleasure in doing things Answer Date of Assessment Author Several days 03/26/2025 11:55 AM NATT Elbert Aggarwal MA * Feeling down, depressed, or hopeless Answer Date of Assessment Author Not at all 03/26/2025 11:55 AM NATT Elbert Aggarwal MA * Trouble falling or staying asleep, or sleeping too much Answer Date of Assessment Author More than half the days 03/26/2025 11:55 AM EDT Kate Aggarwal MA * Feeling tired or having little energy Answer Date of Assessment Author More than half the days 03/26/2025 11:55 AM NATT Kate Aggarwal MA * Poor appetite or overeating Answer Date of Assessment Author More than half the days 03/26/2025 11:55 AM NATT Kate Aggarwal MA * Feeling bad about yourself - or that you are a failure or have let yourself or your family down Answer Date of Assessment Author Not at all 03/26/2025 11:55 AM Elbert Hazel MA * Trouble concentrating on things, such as reading the newspaper or watching television Answer Date of Assessment Author Nearly every day 03/26/2025 11:55 AM Kate Hazel MA * Moving or speaking so slowly that other people could have noticed? Or the opposite - being so fidgety or restless that you have been moving around a lot more than usual. Answer Date of Assessment Author More than half the days 03/26/2025 11:55 AM Kate Hazel MA * Thoughts that you would be better off or hurting yourself in some way Answer Date of Assessment Author Not at all 03/26/2025 11:55 AM Elbert Hazel MA * Patient Health Questionnaire-9 Score Answer Date of Assessment Author 12 03/26/2025 11:55 AM Elbert Hazel MA * How difficult have these problems made it for you to do your work, take care of things at home, or get along with other people? Answer Date of Assessment Author Somewhat difficult 03/26/2025 11:55 AM Kate Hazel MA documented as of this encounter Plan of Treatment Upcoming Encounters Date Type Department Care Team (Late st Contact Info) Description 07/20/2025 10:00 AM EST Office Visit [facility] MED & PEDS [address] [place] [address] Anamaria Morrison MD [address] [place] [address] documented as of this encounter Procedures Procedure Name Priority Date/Time Associated Diagnosis Comments CT CHEST ANGIO W AND WO IV CONTRAST Routine 03/23/2025 9:28 AM EDT ECG 12-LEAD Routine 03/22/2025 9:46 AM EDT XR CHEST 1 VIEW Routine 03/22/2025 9:05 AM EDT documented in this encounter Results * CT CHEST ANGIO W AND WO IV CONTRAST (03/23/2025 9:28 AM EDT) Anatomical Region Laterality Modality Computed Tomogra phy us Historical Provider MD EAST CT PROCEDURES Final R esult * ECG 12 lead (03/22/2025 9:46 AM EDT) us Historical Provider ECG ORDERABLES Final Res ult * XR Chest 1 View (03/22/2025 9:05 AM EDT) Anatomical Region Laterality Modality Chest Radiographic Ruchi ging Historical Provider IMG XR PROCEDURES Final R esult documented in this encounter Visit Diagnoses Not on filedocumented in this encounter Additional Health Concerns Assessment Noted Time PHQ-9 Depression Total Score: 2 08/15/19 23 10:35 AM EST documented as of this encounter Care Teams Waste Disposal Plant Operator Relationship Specialty Start Date End Date Anamaria Morrison MD [address] [place] [id number] PCP - General Internal Medicine 08/20/13 documented as of this encounter
--- OUTSIDE RECORDS SUMMARY | 2025-06-19 13:10 | XMS_ITS | Encounter Summary ---
Author Organization [employer] Address [address] [place] [address] 7 [place] [address] Care Team Providers Care Side Boss Name Role Phone Anamaria Morrison MD Primary Care Provider [phone] Encounter Details Date Type Department Care Team (Late st Contact Info) Description 01/26/2025 Telephone [facility] [address] [place] [address] Anamaria Morrison MD [address] [place], [place] [phone] Social History Tobacco Use Types Packs/Day Years [...] the past 12 months, has t he [employer], gas, oil or water company threatened to [...] Description 07/20/2025 10:00 AM EST Office Visit [facility] MED & PEDS [address] [place] [address] Anamaria Morrison MD [address] [place] [address] documented as of this encounter Visit Diagnoses Not on filedocumented in this encounter Additional Health Concerns Assessment Noted Time PHQ-9 Depression Total Score: 2 08/15/19 23 10:35 AM EST documented as of this encounter Care Teams Side Boss Relationship Specialty Start Date End Date Anamaria Morrison MD [address] [place] [address] PCP - General Internal Medicine 08/20/13 documented as of this encounter
--- OUTSIDE RECORDS SUMMARY | 2025-06-19 13:10 | XMS_ITS | Encounter Summary ---
Author Organization [employer] Address [address] [place] [address] 7 [place] [address] Care Team Providers Care Firmware Test Engineer Name Role Phone Anamaria Morrison MD Primary Care Provider [phone] Encounter Details Date Type Department Care Team (Late st Contact Info) Description 10/14/2024 Orders Only [facility] [address] [place] [address] ProviderEmre MD Social History Tobacco Use Types [...] Description 07/20/2025 10:00 AM EST Office Visit [facility] MED & PEDS [address] [place] [address] Anamaria Morrison MD [address] [place] [address] documented as of this encounter Procedures Procedure Name Priority Date/Time Associated Diagnosis Comments CT ABDOMEN PELVIS W CONTRAST Routine 10/13/2024 3:10 PM EST XR RIBS LEFT W PA CHEST 3+ VW Routine 10/13/2024 9:03 AM EST documented in this encounter Results * CT Abdomen Pelvis w/ Contrast (10/13/2024 3:10 PM EST) Anatomical Region Laterality Modality Body, Pelvis, Abdomen Computed T omography Historical Provider MD EAST CT PROCEDURES Final R esult * XR RIBS LEFT W PA CHEST 3+ VW (10/13/2024 9:03 AM EST) Anatomical Region Laterality Modality Radiographic Ruchi ging Historical Provider MD EAST XR PROCEDURES Final R esult documented in this encounter Visit Diagnoses Not on filedocumented in this encounter Additional Health Concerns Assessment Noted Time PHQ-9 Depression Total Score: 2 08/15/19 23 10:35 AM EST documented as of this encounter Care Teams Firmware Test Engineer Relationship Specialty Start Date End Date Anamaria Morrison MD [address] [place] [address] PCP - General Internal Medicine 08/20/13 documented as of this encounter
--- OUTSIDE RECORDS SUMMARY | 2025-06-19 13:10 | XMS_ITS | Encounter Summary ---
Author Organization [employer] Address [address] [place] [address] [address] [place] [address] Care Team Providers Care Sewer And Drain Technician Name Role Phone Anamaria Morrison MD Primary Care Provider [phone] Encounter Details Date Type Department Care Team ([facility] st Contact Info) Description 02/04/2025 Orders Only [facility] MED & PEDS [address] [place], [place] [phone] ProviderEmre MD Social History Tobacco Use Types [...] Description 07/20/2025 10:00 AM EST Office Visit [facility] MED & PEDS [address] [place] [address] Anamaria Morrison MD [address] [place] [address] documented as of this encounter Procedures Procedure Name Priority Date/Time Associated Diagnosis Comments ECG 12-LEAD Routine 02/03/2025 2:39 PM EDT documented in this encounter Results * ECG 12 lead (02/03/2025 2:39 PM EDT) us Historical Provider ECG ORDERABLES Final Res ult documented in this encounter Visit Diagnoses Not on filedocumented in this encounter Additional Health Concerns Assessment Noted Time PHQ-9 Depression Total Score: 2 08/15/19 23 10:35 AM EST documented as of this encounter Care Teams Sewer And Drain Technician Relationship Specialty Start Date End Date Anamaria Morrison MD [address] [place] [address] PCP - General Internal Medicine 08/20/13 documented as of this encounter
--- OUTSIDE RECORDS SUMMARY | 2025-06-19 13:10 | XMS_ITS | Encounter Summary ---
Author Organization [employer] Address [address] [place] [address] 7 [place] [address] Care Team Providers Care Water Filterer Helper Name Role Phone Anamaria Morrison MD Primary Care Provider [phone] Encounter Details Date Type Department Care Team ([facility] st Contact Info) Description 03/03/2025 Orders Only [facility] MED & PEDS [address] [place], [place] [phone] Provider, MD Emre Social History Tobacco Use Types Packs/Day Years [...] Upcoming Encounters Date Type Department Care Team ([facility] st Contact Info) Description 07/20/2025 10:00 AM EST Office Visit [facility] MED & PEDS [address] [place] [address] Anamaria Morrison MD [address] [place] [address] documented as of this encounter Procedures Procedure Name Priority Date/Time Associated Diagnosis Comments XR CHEST 1 VIEW Routine 2025 9:53 AM EDT ECG 12-LEAD Routine 2025 9:49 AM EDT documented in this encounter Results * XR Chest 1 View (2025 9:53 AM EDT) Anatomical Region Laterality Modality Chest Radiographic Ruchi ging Historical Provider IMG XR PROCEDURES Final R esult * ECG 12 lead (2025 9:49 AM EDT) Historical Provider ECG ORDERABLES Final Res ult documented in this encounter Visit Diagnoses Not on filedocumented in this encounter Additional Health Concerns Assessment Noted Time PHQ-9 Depression Total Score: 2 08/15/19 23 10:35 AM EST documented as of this encounter Care Teams Water Filterer Helper Relationship Specialty Start Date End Date Anamaria Morrison MD [address] [place] [address] PCP - General Internal Medicine 08/20/13 documented as of this encounter
--- OUTSIDE RECORDS SUMMARY | 2025-06-19 13:10 | XMS_ITS | Encounter Summary ---
Author Organization [employer] Address [address] [place] [address] 7 [place] [address] Care Team Providers Care Dealer Support Technician Name Role Phone Anamaria Morrison MD Primary Care Provider [phone] Encounter Details Date Type Department Care Team (Late st Contact Info) Description 02/19/2025 Orders Only [facility] [address] [place] [address] ProviderEmre MD Social History Tobacco Use Types [...] [facility] MED & PEDS [address] [place] [address] Anamaria Morrison MD [address] [place] [address] documented as of this encounter Procedures Procedure Name Priority Date/Time Associated Diagnosis Comments ECG 12-LEAD Routine 02/16/2025 1:58 PM EDT documented in this encounter Results * ECG 12 lead (02/16/2025 1:58 PM EDT) us Historical Provider ECG ORDERABLES Final Res ult documented in this encounter Visit Diagnoses Not on filedocumented in this encounter Additional Health Concerns Assessment Noted Time PHQ-9 Depression Total Score: 2 08/15/19 23 10:35 AM EST documented as of this encounter Care Teams Dealer Support Technician Relationship Specialty Start Date End Date Anamaria Morrison MD [address] [place] [address] PCP - General Internal Medicine 08/20/13 documented as of this encounter
--- OUTSIDE RECORDS SUMMARY | 2025-06-19 13:10 | XMS_ITS | Encounter Summary ---
Author Organization [employer] Address [address] [place] [address] [address] [place] [address] Care Team Providers Care Buffet Attendant Name Role Phone Anamaria Morrison MD Primary Care Provider [phone] Encounter Details Date Type Department Care Team (Late st Contact Info) Description 10/15/2024 Orders Only [facility] [address] [place] [address] ProviderEmre MD Social History Tobacco Use Types [...] 10:00 AM EST Office Visit [facility] MED & PEDS [address] [place] [address] Anamraia Morrison MD [address] [place] [address] documented as of this encounter Procedures Procedure Name Priority Date/Time Associated Diagnosis Comments ECG 12-LEAD Routine 10/13/2024 1:09 PM EST documented in this encounter Results * ECG 12 lead (10/13/2024 1:09 PM EST) us Historical Provider ECG ORDERABLES Final Res ult documented in this encounter Visit Diagnoses Not on filedocumented in this encounter Additional Health Concerns Assessment Noted Time PHQ-9 Depression Total Score: 2 08/15/19 23 10:35 AM EST documented as of this encounter Care Teams Buffet Attendant Relationship Specialty Start Date End Date Anamaria Morrison MD [address] [place] [address] PCP - General Internal Medicine 08/20/13 documented as of this encounter
[2025-06-21 04:28] LABS: HIV Num 1 0.06 S/CO (0.00-0.99); ~HepC Num1 0.11 S/CO (0.00-0.79); ~Hepatitis C Antibody Nonreactive (Nonreactive)
== END 2025-06-19 10:58 | disposition home or self-care (01) ==
LOC: HO.CHCLDS 10:57
PROVIDERS: Visit Provider Internal Medicine
DX: J44.1 Chronic obstructive pulmonary disease with (acute) exacerbation (principal); E03.9 Hypothyroidism, unspecified; F17.200 Nicotine dependence, unspecified, uncomplicated; Z01.84 Encounter for antibody response examination
CPT/HCPCS: 36415; 84443; 86803; 87389